=== PATIENT | female | born 1960 | race Asian ===

== ENCOUNTER 2017-12-26 05:36 | Outpatient (CLI) | payer BC ==
[~2017-12-26] VITALS: Ht 157.5 cm; Wt 47.6 kg
[2017-12-26] MEDS ORDERED: CETI10TA17 PO (11:27)
== END 2017-12-26 11:34 | disposition home or self-care (01) ==
LOC: PREOP 05:36
PROVIDERS: ATTEND Internal Medicine
DX: Z01.818 Encounter for other preprocedural examination (principal)

== ENCOUNTER 2018-01-02 08:04 | Day surgery (SDC) | payer BC ==
--- NOTE | 2017-12-22 04:41 | HISTORY AND PHYSICAL ---
DATE OF SERVICE: DATE OF ADMISSION: 01/02/2018 COLONOSCOPY HISTORY AND PHYSICAL HISTORY OF PRESENT ILLNESS: The patient is a 57-year-old white female seen in the office on 12/17/2017 for yearly wellness evaluation. She had not previously accomplished colonoscopy and this is being set up for 01/02/2018 after discussion. She reports that she feels well and voices no complaints. She is not aware of any family history for any form of malignancy including colon cancer. She walks on a regular basis and has been thin all her life. She has no past history of alcohol consumption or smoking. UPDATED FAMILY HISTORY: Mother and father are both living at the age of 78 with no health problems. She has 2 sisters and one brother with no health problems per her report. PHYSICAL EXAMINATION: GENERAL: Reveals a normal weight oriental female in no acute distress. VITAL SIGNS: Weight is down 3.6 pounds from 2 years ago her last office visit. Blood pressure 122/78. HEENT: Unremarkable. Sclerae nonicteric. NECK: Reveals no thyroid abnormality to palpation, JVD, adenopathy or bruits. Ear canals are clear with normal TMs. Dentition reveals no evidence for caries. There is some malocclusion for which she reports no associated pain or problems. CHEST: Clear to auscultation. CARDIOVASCULAR: Reveals a regular rate and rhythm without murmur, S3 or S4. BREAST: Reveals no masses, dimpling, discharge or axillary adenopathy bilaterally. ABDOMEN: Soft, supple without mass, organomegaly or tenderness. EXTREMITIES: Reveal no cyanosis, clubbing or edema. SKIN: Evaluation reveals no suspicious nevi. We did discuss screening mammogram. She reports that they are very uncomfortable and she just as soon take the risk considering that it is low of foregoing screening for at least another year. Her last Pap test was three years ago. She has no history of any abnormal Pap test and is about three years postmenopausal with no postmenopausal bleeding. We will consider a repeat Pap testing in 2 years. We did recommend a flu shot and 1 was given. The rationale for screening colonoscopy was discussed. ASSESSMENT AND PLAN: Normal well-female examination. The patient is set up for her first screening colonoscopy on 01/02/2018. Prep instructions and Suprep kit were given and questions were answered. Job ID: [id number] DocumentID: [id number] Dictated Date: 12/17/2017 16:09:32 Fiscal Officer Date: 12/17/2017 16:29:16 Dictated By: SERG DE OLIVEIRA MD MTDD
[~2018-01-02] VITALS: Ht 157.5 cm; Wt 46.3 kg
[~2018-01-02 08:04] MED LIST: CETI10TA17 PO
[2018-01-02] MEDS ORDERED: D5 LR IV SOLUTION 1,000 ML IV ONE (08:18)
--- OUTSIDE RECORDS SUMMARY | 2018-01-02 08:20 | XMS REPORT | Continuity of Care Document ---
Author Author [facility] Organization [facility] Address Unknown Phone Unavailable Allergies Active Description Code Type Severity Reaction Onset Reported/Identified Relationship to Patient Clinical Status Yes No Known Drug Allergies [id number] Drug Allergy Unknown N/A 12/26/2017 Medications There is no data. Problems Date Dx Coded Attending Type Code Diagnosis Diagnosed By 12/26/2017 SERG DE OLIVEIRA MD Ot Z01.818 ENCOUNTER FOR OTHER PREPROCEDURAL EXAMIN 01/02/2018 SERG DE OLIVEIRA MD Ot 793.82 INCONCLUSIVE MAMMOGRAM 01/02/2018 SERG DE OLIVEIRA MD Ot V76.12 OTH SCREEN MAMMO-MALIGN NEOPLASM OF BERNICE 01/02/2018 SERG DE OLIVEIRA MD Ot 793.80 UNSPEC ABNORMAL MAMMOGRAM 01/02/2018 SERG DE OLIVEIRA MD Ot 626.2 EXCESSIVE MENSTRUATION Procedures There is no data. Results There is no data. Encounters ACCT No. Visit Date/Time Discharge Status Pt. Type Provider Facility Loc./Unit Complaint [id number] 12/26/2017 05:36:00 12/26/2017 11:34:00 DIS Outpatient SERG DE OLIVEIRA MD [facility] PREOP COLONOSCOPY [id number] 07/22/2013 09:48:00 07/22/2013 23:59:59 CLS Outpatient SERG DE OLIVEIRA MD [facility] RAD HX HYPERMENORRHAGIA [id number] 11/17/2012 13:55:00 11/17/2012 23:59:59 CLS Outpatient SERG DE OLIVEIRA MD [facility] RAD ABN MAMMO [id number] 11/05/2012 08:31:00 11/05/2012 23:59:59 CLS Outpatient SERG DE OLIVEIRA MD [facility] RAD SCREENING [id number] 01/02/2018 08:04:00 ACT Outpatient SERG DE OLIVEIRA MD [facility] ENDO SCREENING
[2018-01-02 08:43] VITALS: BP 121/64
[2018-01-02] MEDS ORDERED: LIDOCAINE JELLY 2% 6 ML SYRINGE ONE (08:54)
[2018-01-02] MEDS ORDERED: MIDAZOLAM 2 MG/2 ML (VERSED) VIAL ONE ×2 (08:54)
[2018-01-02] MEDS ORDERED: fentaNYL INJECTION 100 MCG/2 ML AMP ONE (08:54)
--- NOTE | 2018-01-02 09:11 | Pre-Op Note & Conscious Sedat ---
Pre-Operative Progress Note H&P Reviewed The H&P was reviewed, patient examined and no changes noted. Date H&P Reviewed: Jan 02, 2018 Time H&P Reviewed: 08:55 Conscious Sedation Pre-Proced ASA Score 1 For ASA 3 and 4: Consider anesthesia and medical clearance. Also, for patients with a history of failed moderate sedation consider anesthesia. Airway Lungs Heart ASA score ASA 1: a normal healthy patient ASA 2: a patient with a mild systemic disease (mid diabetes, controlled hypertension, obesity ASA 3: a patient with a severe systemic disease that limits activity (angina , COPD, prior Myocardial infarction) ASA 4: a patient with an incapacitating disease that is a constant threat to life (CHF, renal failure) ASA 5: a moribund patient not expected to survive 24 hrs. (ruptured aneurysm) ASA 6: a declared brain patient whose organs are being harvested. For emergent operations, add the letter E after the classification Mallampati Classification Grade 2 Sedation Plan Analgesia, Amnesia, Plan communicated to team members, Discussed options with patient/fam, Discussed risks with patient/fam The patient is an appropriate candidate to undergo the planned procedure, sedation, and anesthesia. The patient immediately re-assessed prior to indication. SERG DE OLIVEIRA MD Jan 02, 2018 09:11
[2018-01-02] MEDS ORDERED: D5 LR IV SOLUTION 1,000 ML IV STA (09:25)
[2018-01-02] MEDS ORDERED: fentaNYL INJECTION 100 MCG/2 ML AMP IVP ONE (09:30)
[2018-01-02] MEDS ORDERED: LIDOCAINE JELLY 2% 6 ML SYRINGE MM PRN (09:30)
[2018-01-02] MEDS ORDERED: MIDAZOLAM 2 MG/2 ML (VERSED) VIAL IVP ONE (09:30)
[2018-01-02 09:40] VITALS: BP 114/70
[2018-01-02 10:10] VITALS: BP 118/71
[2018-01-02 10:43] VITALS: BP 118/71
--- NOTE | 2018-01-02 17:17 | OPERATIVE REPORT ---
DATE OF SERVICE: 01/02/2018 PRIMARY CARE PROVIDER: Serg De Oliveira MD. INDICATION FOR THE PROCEDURE: Screening colonoscopy. DESCRIPTION OF PROCEDURE: The patient was placed in the left lateral decubitus position. Prior to undergoing colonoscopy, digital rectal evaluation was performed. Anal sphincter tone was normal. The perianal reflexes are intact. No abnormalities were noted on digital inspection of the anal canal or distal rectal vault. The colonoscope was inserted into the rectum and under direct visualization advanced to the cecum. The cecum was identified by identification of the ileocecal valve and cecal strap. Photographic documentation was obtained. Careful inspection was made as the colonoscope was withdrawn. The patient tolerated the procedure well. FINDINGS: There is no evidence for internal or external hemorrhoids. The rectum, the sigmoid colon, descending colon, splenic flexure, transverse colon, hepatic flexure, ascending colon and cecum were unremarkable. ASSESSMENT: Normal colonoscopy to the cecum. As the patient is not aware of any family history for colon cancer, we would advocate consideration for a repeat screening colonoscopy in 10 years. Job ID: [id number] DocumentID: [id number] Dictated Date: 01/02/2018 12:02:59 Sliver Lap Machine Tender Date: 01/02/2018 17:17:12 Dictated By: SERG DE OLIVEIRA MD
== END 2018-01-02 10:43 | disposition home or self-care (01) ==
LOC: ENDO 08:04
PROVIDERS: ATTEND Internal Medicine
DX: Z12.11 Encounter for screening for malignant neoplasm of colon (principal)

== ENCOUNTER 2021-08-08 05:33 | Outpatient (CLI) | payer BC ==
[~2021-08-08] VITALS: Ht 157.5 cm; Wt 50.9 kg
== END 2021-08-08 14:23 | disposition home or self-care (01) ==
LOC: PREOP 05:33
PROVIDERS: ATTEND Internal Medicine
DX: Z01.818 Encounter for other preprocedural examination (principal)

== ENCOUNTER 2021-08-17 07:19 | Day surgery (SDC) | payer BC ==
[~2021-08-17] VITALS: Ht 157.5 cm; Wt 50.9 kg
[2021-08-17] MEDS ORDERED: LACTATED RINGERS 1,000 ML IV STA (07:22)
[2021-08-17] MEDS ORDERED: HURRICAINE EXT TUBE (BENZOCAINE) XX PRN (07:30)
[2021-08-17] MEDS ORDERED: proPOfol 200 MG/20 ML (DIPRIVAN) VIAL IV ONE (07:36)
[2021-08-17] MEDS ORDERED: MIDAZOLAM 2 MG/2 ML (VERSED) VIAL ONE (07:36)
[2021-08-17 07:41] VITALS: BP 127/72
--- NOTE | 2021-08-17 08:06 | Pre-Op Note & Conscious Sedat ---
Pre-Operative Progress Note H&P Reviewed The H&P was reviewed, patient examined and no changes noted. Date H&P Reviewed: Aug 17, 2021 Time H&P Reviewed: 07:50 Conscious Sedation Pre-Proced ASA Score 1 For ASA 3 and 4: Consider anesthesia and medical clearance. Also, for patients with a history of failed moderate sedation consider anesthesia. Airway Lungs Heart ASA score ASA 1: a normal healthy patient ASA 2: a patient with a mild systemic disease (mid diabetes, controlled hypertension, obesity ASA 3: a patient with a severe systemic disease that limits activity (angina, COPD, prior Myocardial infarction) ASA 4: a patient with an incapacitating disease that is a constant threat to life (CHF, renal failure) ASA 5: a moribund patient not expected to survive 24 hrs. (ruptured aneurysm) ASA 6: a declared brain- patient whose organs are being harvested. For emergent operations, add the letter E after the classification Mallampati Classification Grade 2 Sedation Plan Analgesia, Amnesia, Plan communicated to team members, Discussed options with patient/fam, Discussed risks with patient/fam The patient is an appropriate candidate to undergo the planned procedure, sedation, and anesthesia. The patient immediately re-assessed prior to indication. SERG DE OLIVEIRA MD Aug 17, 2021 08:06
[2021-08-17 08:25] VITALS: BP 115/56
[2021-08-17 08:30] VITALS: BP 106/59
[2021-08-17 08:35] VITALS: BP 106/59
[2021-08-17 08:51] VITALS: BP 116/69
--- NOTE | 2021-08-17 11:48 | Anesthesia-General Post-Op ---
MAC Patient Condition Mental Status/LOC: Same as Preop Cardiovascular: Satisfactory Nausea/Vomiting: Absent Respiratory: Satisfactory Pain: Controlled Complications: Absent Post Op Complications Complications None Follow Up Care/Instructions Patient Instructions None needed. Anesthesiology Discharge Order Discharge Order Patient is doing well, no complaints, stable vital signs, no apparent adverse anesthesia problems. No complications reported per nursing. BURT ARCE CRNA Aug 17, 2021 11:48
--- NOTE | 2021-08-17 15:13 | OPERATIVE REPORT ---
DATE OF SERVICE: EGD SUMMARY INDICATION FOR THE PROCEDURE: Epigastric pain with gastroesophageal reflux disease. DESCRIPTION OF PROCEDURE: The patient was placed in the left lateral decubitus position. The endoscope was inserted into the oral cavity and under direct visualization, esophagus was intubated. Endoscope was passed down the esophagus through the stomach and into the second portion of the duodenum. Careful inspection was made as the endoscope was withdrawn. The patient tolerated the procedure well. FINDINGS: The posterior pharynx, true and false vocal folds, arytenoids aperture and epiglottis were unremarkable. The proximal, mid and distal esophagus were unremarkable. The Z line was distinct. No evidence for extrinsic compression was noted. No evidence for erosive esophagitis or Gamboa's change was present. The cardia, fundus, antrum, pylorus, pyloric channel, duodenal bulb and second portion of duodenum were unremarkable. ASSESSMENT: Normal EGD. The patient was reassured by today's findings. Job ID: [id number] DocumentID: [id number] Dictated Date: 08/17/2021 08:23:34 Wwe Wrestler Date: 08/17/2021 15:12:23 Dictated By: SERG DE OLIVEIRA MD
== END 2021-08-17 09:06 | disposition home or self-care (01) ==
LOC: ENDO 07:19
PROVIDERS: ATTEND Internal Medicine
DX: K21.9 Gastro-esophageal reflux disease without esophagitis (principal); R10.13 Epigastric pain